=== PATIENT | female | born 1975 | race Caucasian/White ===

== ENCOUNTER → 2020-04-15 12:45 | Outpatient (CLI) | payer OTHER, SELFPAY ==
--- NOTE | ~2020-04-15 | MM_ITS ---
EXAMINATION: MM screening [facility] BI w poli HISTORY: Screening mammogram TECHNIQUE: Craniocaudal and mediolateral oblique 3-D tomosynthesis images were obtained and synthetic 2-D images were generated. CAD analysis was submitted and interpreted. COMPARISON: 10/26/2018 bilateral diagnostic digital mammography and limited right breast ultrasound 10/25/2017, 10/05/2016 digital screening mammogram examinations BREAST PARENCHYMAL COMPOSITION: There are scattered areas of fibroglandular density. FINDINGS: Bilateral stable chronic benign-appearing intramammary lymph nodes, upper outer quadrants. There is no evidence of suspicious mass, calcification, or architectural distortion to suggest malign piedad in either breast. There has been no suspicious interval change. IMPRESSION: 1. No mammographic evidence of malignancy. 2. Recommend routine screening mammography in one year. BI-RADS Category 2: Benign finding(s). Reviewed, dictated and finalized at location A. MAKER MACHINE SETTER
== END ==
PROVIDERS: Visit Provider Obstetrics & Gynecology Gynecology
DX: Z12.31 Encounter for screening mammogram for malignant neoplasm of breast (principal)
CPT/HCPCS: 77063; 77067

== ENCOUNTER → 2021-05-28 10:04 | Outpatient (CLI) | payer OTHER, SELFPAY ==
--- NOTE | ~2021-05-28 | MM_ITS ---
EXAMINATION: MM screening [facility] BI w poli HISTORY: Screening mammogram TECHNIQUE: Craniocaudal and mediolateral oblique 3-D tomosynthesis images were obtained and synthetic 2-D images were generated. CAD analysis was submitted and interpreted. COMPARISON: 04/15/2020 bilateral screening mammogram 10/26/2018 bilateral diagnostic mammogram and limited right breast ultrasound bilateral screening mammogram BREAST PARENCHYMAL COMPOSITION: The breasts are almost entirely fatty. FINDINGS: Stable small benign intramammary lymph nodes of the upper outer quadrant of each breast. Th ere is no evidence of suspicious mass, calcification, or architectural distortion to suggest malignan cy in either breast. There has been no suspicious interval change. IMPRESSION: 1. No mammographic evidence of malignancy. 2. Recommend routine screening mammography in one year. BI-RADS Category 2: Benign finding(s). Reviewed, dictated and finalized at location A.
== END ==
PROVIDERS: PCP Family Medicine; Visit Provider Nurse Practitioner
DX: Z12.31 Encounter for screening mammogram for malignant neoplasm of breast (principal)
CPT/HCPCS: 77063; 77067

== ENCOUNTER 2021-12-18 11:19 | Outpatient (CLI) | payer OTHER, SELFPAY ==
--- NOTE | ~2021-12-18 | XR_ITS ---
EXAMINATION: XR wrist LT min 3V DATE: 12/18/2021 11:37 INDICATION: Left wrist pain TECHNIQUE: Posteroanterior, ulnar deviation, oblique, and lateral views of the left wrist were obtain ed. COMPARISON: None available FINDINGS: No fracture, dislocation, or subluxation. The bones and joint spaces are normal. There is m inimal heterotopic ossification near the pisiform. IMPRESSION: 1. No acute osseous abnormality. Reviewed, dictated and finalized at location B. RNET PROGRAMMER
== END 2021-12-18 11:20 | disposition home or self-care (01) ==
LOC: CHSIMG 11:22
PROVIDERS: PCP Family Medicine; Visit Provider Registered Nurse
DX: M25.532 Pain in left wrist (principal)
CPT/HCPCS: 73110

== ENCOUNTER → 2022-06-03 09:33 | Outpatient (CLI) | payer OTHER, SELFPAY ==
--- NOTE | ~2022-06-03 | MM_ITS ---
EXAMINATION: MM screening [facility] BI w poli HISTORY: Screening mammogram TECHNIQUE: Craniocaudal and mediolateral oblique 3-D tomosynthesis images were obtained and synthetic 2-D images were generated. CAD analysis was submitted and interpreted. COMPARISON: May 28, 2021, April 15, 2020, October 26, 2018 bilateral screening mammogram examinati ons BREAST PARENCHYMAL COMPOSITION: There are scattered areas of fibroglandular density. FINDINGS: There is no evidence of suspicious mass, calcification, or architectural distortion to sugg est malignancy in either breast. There has been no suspicious interval change. IMPRESSION: 1. No mammographic evidence of malignancy. 2. Recommend routine screening mammography in one year. BI-RADS Category 1: Negative Reviewed, dictated and finalized at location A.
== END ==
PROVIDERS: PCP Nurse Practitioner; Visit Provider Nurse Practitioner
DX: Z12.31 Encounter for screening mammogram for malignant neoplasm of breast (principal)
CPT/HCPCS: 77063; 77067

== ENCOUNTER 2023-03-17 14:56 | Outpatient (CLI) | payer OTHER, SELFPAY ==
--- NOTE | ~2023-03-17 | XR_ITS ---
EXAMINATION: XR_CERV2-3V_CR DATE: 03/17/2023 INDICATION: Neck pain. TECHNIQUE: 3 views of cervical spine were obtained. COMPARISON: Cervical spine radiographs 05/03/2015, cervical spine MRI 03/08/2018 FINDINGS: There is mild kyphosis of cervical spine. There is 2 mm retrolisthesis of C5 on C6. Vertebr al body heights are normal. There is mildly decreased disc height at C4-C5, moderately decreased disc height at C5-C6, and mildly decreased disc height at C6-C7. There is multilevel mild facet joint ost eoarthritis. There is multilevel uncovertebral joint osteoarthritis, severe on the right at C5-C6. Th ere is mild central canal stenosis at C5-C6. No prevertebral soft tissue swelling. IMPRESSION: 1. Moderate cervical spondylosis. Reviewed, dictated and finalized at location E. ER ROOM HELPER
== END 2023-03-17 14:57 | disposition home or self-care (01) ==
PROVIDERS: PCP Family Medicine; Visit Provider Family Medicine
DX: M54.2 Cervicalgia (principal); M43.02 Spondylolysis, cervical region
CPT/HCPCS: 72040

== ENCOUNTER 2023-03-24 07:55 | Outpatient (RCR) | payer OTHER, SELFPAY ==
--- NOTE | 2023-03-24 07:54 | OPREHPOC ---
Outpatient Therapy Plan of Care This is a Multidisciplinary Plan of Care that may contain components documented by all disciplines (PT, OT, and ST.) PT Problem 1 PT Problem #1 Knowledge Deficit PT Goal 1 Goal Patient to demonstrate independence with HEP Target Visit 5 PT Problem 2 PT Problem #2 Pain PT Goal 1 Goal Patient to report 0/10 neck pain after work day Target Visit 10 PT Problem 3 PT Problem #3 Impaired Strength PT Goal 1 Goal Patient to demonstrate 5/5 B UE strength to return to heavy house hold tasks at PLOF PT Problem 4 PT Problem #4 Impaired Functional Mobil PT Goal 1 Goal 1. Patient to report ability to sit for >1 hour with no tingling noted 2. Patient to report ability to complete house hold tasks with no increase in pain Target Visit 2 PT Goal 2 Goal 1. Patient to report ability to sit at her desk throughout the work day with no onset of tingling Target Visit 10
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
--- NOTE | 2023-04-21 07:41 | OPREHPOC ---
Outpatient Therapy Plan of Care This is a Multidisciplinary Plan of Care that may contain components documented by all disciplines (PT, OT, and ST.) PT Problem 1 PT Problem #1 Knowledge Deficit PT Goal 1 Goal Patient to demonstrate independence with HEP Target Visit 5 Progress Met PT Problem 2 PT Problem #2 Pain PT Goal 1 Goal Patient to report 0/10 neck pain after work day Target Visit 10 Progress Met PT Problem 3 PT Problem #3 Impaired Strength PT Goal 1 Goal Patient to demonstrate 5/5 B UE strength to return to heavy house hold tasks at OF Progress Met PT Problem 4 PT Problem #4 Impaired Functional Mobil PT Goal 1 Goal 1. Patient to report ability to sit for >1 hour with no tingling noted 2. Patient to report ability to complete house hold tasks with no increase in pain Target Visit 2 Progress Met PT Goal 2 Goal 1. Patient to report ability to sit at her desk throughout the work day with no onset of tingling Target Visit 10 Progress Met
--- NOTE | 2023-04-21 07:41 | PTOPEVAL1 ---
Assessment and note entered by Jeanine Sandra DPT Evaluation Information Assessment Status Discharge Diagnosis neck pain, chest pain Onset 02/24/23 Subjective Information patient reports no occurrence of numbness in the past 2 weeks. she repots pain at pec area has also resolved. she reports she is pain free. she reports independence with HEP Reported Pain Level Pain Score 0: Self Report Assessment PT Clinical Summary Mrs. Goff has been seen for 8 visits of skilled PT from 03/24/23-04/21/23. She met all goals while in skilled PT. She demonstrates 5/5 UE strength, no numbness or tingling and no reports of pain at end of the work day. She is independent with HEP and is appropriate for DC at this time. Plan of Care Interventions Electrical Stimulation,Hot Pack/Cold Pack,Manual Therapy,Mechanical Traction,Neuro Re-education, Patient/Caregiver Educati,Therapeutic Activities, Therapeutic Exercise PT Services Indicated No Treatment Frequency and DC to independent HEP Duration These treatments will address the objective and functional deficits as defined above. The patient will be advanced safely and appropriately in order for the patient to progress towards his/her prior level of function. Additional exercises will be introduced and as well as a comprehensive home exercise program upon discharge, if needed, ?to ensure carryover of functional gains achieved in the clinic. This treatment plan has been reviewed and agreement upon by the patient.
== END 2023-04-21 15:16 | disposition home or self-care (01) ==
LOC: CHSPT 07:55
PROVIDERS: PCP Family Medicine; Visit Provider Family Medicine
DX: M54.2 Cervicalgia (principal)
CPT/HCPCS: 97110; 97140; 97161

== ENCOUNTER 2023-05-12 07:46 | Outpatient (CLI) | payer OTHER, SELFPAY ==
--- NOTE | ~2023-05-12 | US_ITS ---
Pelvic ultrasound. Clinical History: Abnormal uterine bleeding, pelvic pain Technique: Realtime transabdominal and transvaginal scanning of the pelvis was performed. Color flow Doppler and Doppler spectral analysis were performed. Findings: The uterus is anteverted. The endometrial stripe has a thickness of 7 mm. There are severa l small cystic areas which appear to be within the endometrial stripe. The right ovary is not visualized. No significant right ovarian or adnexal mass is seen. The left ovary questionable imaged, measuring up to 1.9 x 1.3 x 1.0 cm No significant left ovarian or adnexal mass is seen. There is no evidence of free fluid in the cul de sac. Impression: Several small cystic areas in the endometrial stripe, of uncertain clinical significance. No other significant findings. Reviewed, dictated and finalized at [facility]. Impression: Several small cystic areas in the endometrial stripe, of uncertain clinical sig nificance. No other significant findings.
== END 2023-05-12 07:47 | disposition home or self-care (01) ==
LOC: CHSIMG 07:50
PROVIDERS: PCP Family Medicine; Visit Provider Nurse Practitioner
DX: N93.8 Other specified abnormal uterine and vaginal bleeding (principal)
CPT/HCPCS: 76830; 76856

== ENCOUNTER 2023-06-06 03:50 | Day surgery (SDC) | payer OTHER, SELFPAY ==
[2023-05-31 08:39] VITALS: BMI 34.3
--- NOTE | 2023-05-31 08:43 | PC.NURSE ---
Report to the Outpatient Waiting Room, entrance under the green pavilion located off [facility], at time 1045 on date 06/06/23. Planned Procedure Time: 1245. Time changes happen often and if your time is changed the preop area will call you the afternoon before. - You and your visitor will be asked to self-screen and do not enter if you have any COVID symptoms. - A mask is optional within the hospital at this time. Patients may have clear liquids (water, carbonated beverages, clear teas, apple juice) until 3 hours prior to surgery with a maximum of 20 ounces. - No food from midnight until time of surgery Take the following medications with a SIP of water the morning of surgery: NONE DO NOT STOP ANY OF YOUR OTHER PRESCRIPTION MEDICATIONS PRIOR TO SURGERY ?EXCEPT THE FOLLOWING Medications to discontinue per physician: N/A Date to take last dose: N/A Please no make-up, nail albanian, hairspray, perfume, deodorant, or body powder the day of surgery. No jewelry (including any body piercings) or valuables the day of surgery, leave them at home. Please take a shower or bath the night before, or the morning of, surgery with an antibacterial soap. Wear comfortable, loose fitting clothing. - Jewelry must be removed prior to entering the operating room. Rings and piercings that are not removed may be cut off. - The hospital will not accept responsibility for valuables. - Please leave all valuables, including medications, at home the day of surgery. If you are going home after surgery, a licensed lift driver must drive you home. - NO public transportation without another adult if you receive anesthesia. - We recommend that an adult stay with you for 24 hours following discharge. - We also recommend that you do not drive, make important decision, drink alcoholic beverages, or take any drugs that were not prescribed by your health care provider for at least 24 hours after your discharge time. Follow any additional instructions given to you from your surgeon. If you or anyone in your household have experienced Covid symptoms in the past week, please notify your surgeon or the nurse liaison at the phone number below for possible testing. Telephone instructions given to OSMAN NGUYEN and asked if any additional questions and then verbalized understanding. Patient advised to call surgeon office or pre surgery nurse liaison [phone] if any additional questions.
--- NOTE | 2023-06-06 07:30 | WPDHPUPDATE1 ---
History and Physical Update Update Date/Time: 06/06/23 07:30 History and Physical has been reviewed, including an updated exam of the patient. There are NO changes in the patient's condition. Risks, benefits, and alternatives have been discussed and questions answered. Patient agrees to proceed with procedure.
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
[2023-06-06 10:49] VITALS: BP 144/96; PULSE 74; RESP 18; TEMP 36.3; O2SAT 100
[2023-06-06] MEDS: ACETAMINOPHEN 500 MG TABLET 1000 MG PO (11:43)
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
[2023-06-06 12:10] LABS: Anion Gap 10 mmol/L (4-12); Blood Urea Nitrogen 9 mg/dL (7-17); Calcium 9.6 mg/dL (8.4-10.2); Carbon Dioxide 26 mmol/L (22-30); Chloride 104 mmol/L (98-107); Estimated Glomerular Filt Rate > 60; Glucose 121 mg/dL (65-110); Potassium 3.8 mmol/L (3.4-5.0); Sodium 140 mmol/L (137-145)
--- NOTE | 2023-06-06 12:41 | P.OP_ITS ---
Procedure Note - Detailed Date of Procedure 06/06/23 Pre-op Diagnosis Abnormal Uterine bleeding Post-op Diagnosis Same Procedure Performed D&C hysteroscopy Surgeon Shanika Rader MD Anesthesia MAC Findings cervix and anterior and posterior vaginal wall in the upper 3rd have an inflammatory reaction and a strawberry appearance uterus sounds to 8cm and endometrium appears grossly normal Description of Procedure The patient is taken the operating room and placed under anesthesia in the dorsal lithotomy position. She was prepped and draped in the usual sterile fashion. [place] speculum was placed in the vagina and the cervix noted as above. Picture documentation was taken. The uterus is sounded to 8cm. The diagnostic hysteroscope was placed. With no abnormalities noted it is removed. The sharp curette is used to curette the endometrium until a good uterine cry was noted in all areas. Minimal material was obtained consistent with the visual appearance. All instruments were removed. Sponge, needle, and instrument counts are correct per the OR staff. Patient was taken to recovery in stable condition. Estimated Blood Loss 5 Drains No Packing No Pathology Yes ( Endometrial curettings) Complications No immediate complications Condition Stable Disposition PACU
[2023-06-06 12:42] VITALS: BP 136/55; PULSE 98; RESP 16; O2SAT 96
[2023-06-06] MEDS: LACTATED RINGERS 1,000 ML 30 ML IV CONT (12:42)
[2023-06-06 12:53] LABS: Glucose Point of Care 118 mg/dl (65-105)
[2023-06-06 13:00] VITALS: BP 141/85; PULSE 93; RESP 16
[2023-06-06 13:25] VITALS: BP 142/89; PULSE 80; RESP 16
[2023-06-06 14:28] LABS: Rapid Plasma Reagin Non-Reactive (NonReactive)
== END 2023-06-06 13:39 | disposition home or self-care (01) ==
PROVIDERS: Anesthesiology; PCP Family Medicine; Visit Provider Obstetrics & Gynecology Gynecology
PROC: 0U5B8ZZ Destruction of Endometrium, Via Natural or Artificial Opening Endoscopic (ICD-10-PCS; CPT 58563; principal; 2023-06-06 12:45)
DX: N93.9 Abnormal uterine and vaginal bleeding, unspecified (principal); N72 Inflammatory disease of cervix uteri; E55.9 Vitamin D deficiency, unspecified; G89.29 Other chronic pain; M25.511 Pain in right shoulder; E66.9 Obesity, unspecified; Z68.33 Body mass index [BMI] 33.0-33.9, adult; Z79.51 Long term (current) use of inhaled steroids; Z79.84 Long term (current) use of oral hypoglycemic drugs; Z98.890 Other specified postprocedural states; Z90.49 Acquired absence of other specified parts of digestive tract; Z80.0 Family history of malignant neoplasm of digestive organs; Z82.49 Family history of ischemic heart disease and other diseases of the circulatory system
CPT/HCPCS: 58558; 36415; 80048; 82948; 86592; 88305; A9270; J2250; J2704; J3010; J7120

== ENCOUNTER 2023-08-04 10:02 | Outpatient (CLI) | payer OTHER, SELFPAY ==
--- NOTE | ~2023-08-04 | MM_ITS ---
EXAMINATION: MM screening [facility] BI w poli HISTORY: Screening mammogram TECHNIQUE: Craniocaudal and mediolateral oblique 3-D tomosynthesis images were obtained and synthetic 2-D images were generated. CAD analysis was submitted and interpreted. COMPARISON: 06/03/2022, 05/28/2021, 04/15/2020 BREAST PARENCHYMAL COMPOSITION:Not Dense. The breasts are almost entirely fatty FINDINGS: No suspicious mass, calcification, or architectural distortion are identified in either salvador ast to suggest malignancy. There has been no suspicious interval change. IMPRESSION: No mammographic evidence of malignancy. Recommend routine screening mammography in one year. BI-RADS Category 1: Negative Reviewed, dictated and finalized at location .
== END 2023-08-04 10:03 ==
LOC: MICIMG 10:03
PROVIDERS: PCP Nurse Practitioner; Visit Provider Nurse Practitioner
DX: Z12.31 Encounter for screening mammogram for malignant neoplasm of breast (principal)
CPT/HCPCS: 77063; 77067

== ENCOUNTER 2024-09-27 13:06 | Outpatient (CLI) | payer OTHER, SELFPAY ==
--- NOTE | ~2024-09-27 | MM_ITS ---
EXAMINATION: MM screening [facility] BI w poli HISTORY: Screening mammogram TECHNIQUE: Craniocaudal and mediolateral oblique 3-D tomosynthesis images were obtained and synthetic 2-D images were generated. CAD analysis was submitted and interpreted. COMPARISON: 08/04/2023, 06/03/2022, 05/28/2021 BREAST PARENCHYMAL COMPOSITION:Not Dense. There are scattered areas of fibroglandular density. FINDINGS: No suspicious mass, calcification, or architectural distortion are identified in either breast to suggest malignancy. There has been no suspicious interval change. IMPRESSION: No mammographic evidence of malignancy. Recommend routine screening mammography in one year. BI-RADS Category 1: Negative Reviewed, dictated and finalized at location .
--- NOTE | ~2024-09-27 | DEXA_ITS ---
Bone Density Report Name: WENDY GILLIS Age: 48 Sex: Female Ethnicity: White Date of : 1975 Indication: postmenopausal; Referring Provider: CARLOS HERRERA Study: Bone densitometry was performed. Exam Date: September 27, 2024 Accession number: [id number] Bone Density: Region BMD T-score Z-score Classification AP Spine(L1-L4) 1.090 0.4 1.1 Normal Femoral Neck (Left) 0.714 -1.2 -0.5 Osteopenia Total Hip (Left) 0.880 -0.5 -0.1 Normal Femoral Neck (Right) 0.712 -1.2 -0.6 Osteopenia Total Hip (Right) 0.877 -0.5 -0.1 Normal Total Hip Mean 0.879 -0.5 -0.1 Normal World Health Organization criteria for BMD impression classify patients as: Normal (T-score at or above -1.0), Osteopenia (T-score between -1.0 and -2.5), or Osteoporosis (T-score at or below -2.5). 10-year Fracture Risk(1): Major Osteoporotic Fracture 3.9% Hip Fracture 0.2% Reported Risk Factors: [place] (), Neck BMD=0.714, BMI=27.4 (1) FRAX(R) Version 3.08. Fracture probability calculated for an untreated patient. Fracture probability may be lower if the patient has received treatment. Clinical Information Provided by Patient: Patient maximum height was 60 Menopause Age: 48 No regular weight bearing exercise Does not regularly consume dairy products Drinks caffeinated beverages Onset of menses at age 13 Number of children 1 Impression: The patient has low bone mass, based on the Left Femoral Neck T-score. The patient has an estimated ten-year risk of hip fracture of 0.2% and an estimated ten-year risk of major fracture of 3.9%, based on the WHO FRAX algorithm. Discussion: BONE DENSITY IS LOW AT ONE OR MORE SKELETAL SITES. This patient's lowest T-score is low at one or more skeletal sites. It meets the World Health Organization's (WHO) criteria for ?low bone mass? (T-score between -1.0 and -2.5). The patient's 10-year risk of fracture as calculated by FRAX is less than the threshold where pharmacological therapy is recommended by the National Osteoporosis Foundation (NOF). However, all treatment decisions require clinical judgment and consideration of individual patient factors, including patient preferences, comorbidities, previous drug use, risk factors not captured in the FRAX model (e.g., frailty, falls, vitamin D deficiency, increased bone turnover, interval significant decline in bone density) and possible under or overestimation of fracture risk by FRAX. The patient should follow a healthful lifestyle (good nutrition with adequate calcium and vitamin D, and appropriate weight-bearing exercise). Follow-Up: Consider repeating this study in 2 to 3 years to reassess this patient's status, or sooner if there is some new clinical indication. Reported by: ROBERTO on 09/27/2024 2:13:00 PM. Reviewed, dictated and finalized at location A.
== END 2024-09-27 13:07 | disposition home or self-care (01) ==
PROVIDERS: PCP Obstetrics & Gynecology Gynecology; Visit Provider Obstetrics & Gynecology Gynecology
DX: Z12.31 Encounter for screening mammogram for malignant neoplasm of breast (principal); M85.852 Other specified disorders of bone density and structure, left thigh; M85.851 Other specified disorders of bone density and structure, right thigh; Z78.0 Asymptomatic menopausal state
CPT/HCPCS: 77063; 77067; 77080